=== PATIENT | female | born 1985 | race Caucasian/White ===

== ENCOUNTER 2020-07-06 08:51 | Outpatient (REF) | payer OTHER, SELFPAY ==
--- NOTE | 2020-07-06 | US_ITS ---
EXAMINATION: US OBSTETRICAL CLINICAL INFORMATION: 35-year-old at 12.3 weeks of gestation Suspected anomaly History of IUFD at term COMPARISON: 05/25/2020 TECHNIQUE: Real-time transabdominal ultrasound was performed using C1-5 megahertz transducer. FINDINGS: A single, active, fetus is seen in breech presentation. The placenta is anterior without previa, and the amniotic fluid volume is wnl. MEASUREMENTS: 1. Biparietal Diameter: 4.2 cm; 18.6 wks 2. Occipital Frontal Diameter: 5.9 cm 3. Head Circumference: 16.3 cm; 19.1 wks 4. Abdominal Circumference: 12.7 cm; 18.2 wks 5. Femur Length: 2.94 cm; 19.1 wks 6. Humerus Length: 3.02 cm; 20.0 wks 7. Tibia Length: 2.47 cm; 18.6 wks 8. Ulna Length: 2.54 cm; 19.2 wks 9. Lateral ventricle: 0.68 cm 10. Cerebellum: 1.9 cm; 19.4 wks 11. Cisterna Magna: 0.42 cm 12. Nuchal Fold: 4.13 mm 13. Heart Rate: 155 beats per minute Rt ovary: normal Lt ovary: normal Cervical length 4.0 cm on T/A. GESTATIONAL AGE: 1. Established GA: 18.3 wks 2. [facility]: 18.6 wks ESTIMATED DATE OF DELIVERY: 1. Established BOWEN: 12/04/2020 2. BOWEN [facility]: 12/01/2020 ANATOMY: The visualized anatomy includes but not limited to: 1. Cranium: Normal 2. Intracranial anatomy: cavum septum pellucidi, lateral ventricles, choroid plexus, cerebellum, posterior fossa, third and fourth ventricles. 3. face: orbits, lip/palate, profile, nasal bone 4. Heart: four-chamber view of the heart, ventricular septum, foramen ovale, pulmonary vein, left and right outflow tracts, three-vessel view, 3 vessel trachea view, aortic and ductal arches, situs.. 5. Diaphragm: Normal 6. Abdominal wall: Normal 7. Cord Insertion: Normal 8. Spine: Cervical, thoracic, lumbar, sacral. 9. Stomach: Normal size and shape 10. Right Kidney: Normal 11. Left Kidney: Normal 12. 3 vessel cord: Normal 13. Upper extremity: Open hands, fifth digit. 14. Lower extremity: Tibia, fibula, bilateral feet. 15. Bladder: Normal 16. Genitalia: Male, patient aware IMPRESSION: 1. Single, living, intrauterine with appropriate biometry. 2. Normal survey DISCUSSION: I reviewed today's ultrasound findings. We discussed the limitations of ultrasound in diagnosing aneuploidy and other congenital abnormalities. I reviewed the differences between screening test and diagnostic test. Amniocentesis was discussed and declined. She was informed that the baseline incidence of congenital abnormalities is approximately 3-5%. Not all these conditions are diagnosable in utero. 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 The recurrence risk is minimally increased above the baseline incidence. I informed the patient that the start weekly NST and biophysical profile starting at 34 weeks of gestation. Given her history, an elective delivery at approximately 38 weeks of gestation should be considered. However the final decision will depend on the clinical circumstances as we approach term. RECOMMENDATIONS: 1. Follow-up at approximately 24 weeks for growth (scheduled) 2. Beginning weekly NST and BPP starting at 34 weeks of gestation 3. Consider elective delivery at approximately 38 weeks of gestation. Thank you for allowing me to participate in her care. Visiting time 25 minutes. Majority of this visit was spent reviewing and discussing her care.
== END 2020-07-06 08:52 | disposition home or self-care (01) ==
LOC: HO.US 08:51
PROVIDERS: Visit Provider Advanced Practice Midwife
DX: Z34.92 Encounter for supervision of normal pregnancy, unspecified, second trimester (principal)
CPT/HCPCS: 76811

== ENCOUNTER → 2020-07-09 08:06 | Outpatient (BNVA) | payer OTHER, SELFPAY | PROVIDERS: PCP Nurse Practitioner Family; Referring Provider Nurse Practitioner Family; Visit Provider Advanced Practice Midwife | DX: Z76.89 Persons encountering health services in other specified circumstances (principal) ==

== ENCOUNTER → 2020-07-23 08:05 | Outpatient (BNVA) | payer OTHER, SELFPAY | PROVIDERS: Visit Provider Advanced Practice Midwife | DX: Z76.89 Persons encountering health services in other specified circumstances (principal) ==

== ENCOUNTER 2020-08-03 08:52 | Outpatient (REF) | payer OTHER, SELFPAY ==
--- NOTE | 2020-08-03 09:01 | US_ITS ---
EXAMINATION: OBSTETRICAL ULTRASOUND, Follow up HISTORY: 35-year-old at 22.3 weeks of gestation History of stillbirth COMPARISON: 07/06/2020 TECHNIQUE: Real time transabdominal imaging with color and M-mode Doppler. PRESENTATION: Breech PLACENTA LOCATION: Anterior without previa AMNIOTIC FLUID: Normal MEASUREMENTS: 1. Biparietal Diameter: 5.6 cm; 23.0 wks 2. Head Circumference: 21.0 cm; 23.1 wks 3. Abdominal Circumference: 17.9 cm; 22.6 wks 4. Femur Length: 4.1 cm; 33.1 wks 5. Heart Rate: 156 beats per minute WEIGHT: Estimated weight is 549 grams (1 lbs 3 oz) -- 70 %. Normal views of lateral cerebral ventricle, profile, nose/lips, 4ch view, LVOT, RVOT, gender. GESTATIONAL AGE: 1. Established GA: 22.3 wks 2. GA from [facility]: 23.1 wks ESTIMATED DATE OF DELIVERY: 1. Established BOWEN: 12/04/2020 2. BOWEN from [facility]: 11/29/2020 US/US OB follow up IMPRESSION: 1. A single fetus with appropriate interval growth. RECOMMENDATIONS: 1. f/u in 3-4 weeks is been scheduled. Thank you very much for this referral.
== END 2020-08-03 08:53 | disposition home or self-care (01) ==
LOC: HO.US 08:52
PROVIDERS: Visit Provider Advanced Practice Midwife
DX: Z34.82 Encounter for supervision of other normal pregnancy, second trimester (principal)
CPT/HCPCS: 76816

== ENCOUNTER → 2020-08-20 08:16 | Outpatient (BNVA) | payer OTHER, SELFPAY | PROVIDERS: Visit Provider Advanced Practice Midwife | DX: Z76.89 Persons encountering health services in other specified circumstances (principal) ==

== ENCOUNTER → 2020-08-23 15:27 | Outpatient (BNVA) | payer OTHER, SELFPAY | PROVIDERS: Visit Provider Advanced Practice Midwife | DX: Z76.89 Persons encountering health services in other specified circumstances (principal) ==

== ENCOUNTER 2020-08-24 08:59 | Outpatient (REF) | payer OTHER, SELFPAY ==
--- NOTE | 2020-08-24 09:02 | US_ITS ---
EXAMINATION: OBSTETRICAL ULTRASOUND, Follow up HISTORY: 35-year-old at the 25.3 weeks of gestation History of IUFD at term Size date discrepancy COMPARISON: 08/03/2020 TECHNIQUE: Real time transabdominal imaging with color and M-mode Doppler. PRESENTATION: Vertex PLACENTA LOCATION: Anterior without previa AMNIOTIC FLUID: Within normal limits MEASUREMENTS: 1. Biparietal Diameter: 6.7 cm; 27.0 wks 2. Head Circumference: 24.9 cm; 27.0 wks 3. Abdominal Circumference: 22.6 cm; 27.0 wks 4. Femur Length: 5.0 cm; 26.6 wks 5. Heart Rate: 139 beats per minute WEIGHT: EFW: 1002 grams (2 lbs 3 oz) -- 94 %. BIOPHYSICAL PROFILE: Motion: 2 Tone: 2 Breathin Amniotic Fluid: 2 Total score: 8/8 GESTATIONAL AGE: 1. Established GA: 25.3 wks 2. GA from [facility]: 27.0 wks ESTIMATED DATE OF DELIVERY: 1. Established BOWEN: 12/04/2020 2. BOWEN from [facility]: 11/23/2020 US/US OB follow up IMPRESSION: 1. A single active fetus is in vertex presentation 2. Size greater than dates, EFW corresponds to 94th percentile 3. Reassuring biophysical profile I reviewed today's ultrasound findings and discussed the limitations of ultrasound and estimating weights. She has a history of gestational diabetes. Decided to skip the glucose challenge is an start monitoring her fingerstick glucose values. Reports that her fasting as well as all of her postprandial values are within target range. She is currently on GDM diet. I reviewed the association between now macrosomia and elevated maternal glucose. However in this case, the fetus is constitutionally meant to be near the 90th percentile. Today's finding does not predict macrosomia at term. Given her history, we should continue interval growth evaluation and start testing weekly from 32 weeks. Follow-up has been scheduled in approximately 4-5 weeks. Thank you very much for this referral. Visiting time 25 minutes. Majority of this visit was spent reviewing and coordinating her care.
== END 2020-08-24 09:00 | disposition home or self-care (01) ==
LOC: HO.US 08:59
PROVIDERS: Visit Provider Advanced Practice Midwife
DX: O99.810 Abnormal glucose complicating pregnancy (principal)
CPT/HCPCS: 76816

== ENCOUNTER → 2020-09-10 08:25 | Outpatient (BNVA) | payer OTHER, SELFPAY | PROVIDERS: Visit Provider Advanced Practice Midwife | DX: Z76.89 Persons encountering health services in other specified circumstances (principal) ==

== ENCOUNTER → 2020-09-26 08:13 | Outpatient (BNVA) | payer OTHER, SELFPAY | PROVIDERS: Visit Provider Advanced Practice Midwife | DX: Z34.82 Encounter for supervision of other normal pregnancy, second trimester (principal) | CPT/HCPCS: 99212 ==

== ENCOUNTER 2020-09-28 08:59 | Outpatient (REF) | payer OTHER, SELFPAY ==
--- NOTE | 2020-09-28 09:03 | US_ITS ---
EXAMINATION: OBSTETRICAL ULTRASOUND, Follow up HISTORY: 35-year-old at the 30.3 weeks of gestation History of stillbirth Size date discrepancy COMPARISON: 08/24/2020 TECHNIQUE: Real time transabdominal imaging with color and M-mode Doppler. PRESENTATION: Vertex PLACENTA LOCATION: Anterior without previa AMNIOTIC FLUID: Normal MEASUREMENTS: 1. Biparietal Diameter: 8.1 cm; 32.4 wks 2. Head Circumference: 29.4 cm; 32.3 wks 3. Abdominal Circumference: 27.95 cm; 32.0 wks 4. Femur Length: 6.2 cm; 32.0 wks 5. Heart Rate: 140 beats per minute WEIGHT: EFW: 1898 grams (4 lbs 3 oz) -- 89 %. BIOPHYSICAL PROFILE: Motion: 2 Tone: 2 Breathin Amniotic Fluid: 2 Total score: 8/8 GESTATIONAL AGE: 1. Established GA: 30.3 wks 2. GA from [facility]: 32.2 wks ESTIMATED DATE OF DELIVERY: 1. Established BOWEN: 12/04/2020 2. BOWEN from [facility]: 11/21/2020 US/US OB follow up IMPRESSION: 1. A single active fetus is in vertex presentation 2. Size equals dates 3. Reassuring biophysical profile I reviewed today's findings and gave her reassurance. So far there is no evidence of ureter placental insufficiency. The EFW corresponds to 89th percentile. She had normal 1 hour glucose challenge. Given her history of IUFD, it would be reasonable to consider an elective induction of labor at approximately 38 weeks of gestation. Weekly NST and BPP she start approximately 34 weeks. Thank you very much for this referral. Visiting time 22 minutes. (2,12,8)
== END 2020-09-28 09:00 | disposition home or self-care (01) ==
LOC: HO.US 08:59
PROVIDERS: Visit Provider Advanced Practice Midwife
DX: O99.810 Abnormal glucose complicating pregnancy (principal); O09.293 Supervision of pregnancy with other poor reproductive or obstetric history, third trimester; Z3A.30 30 weeks gestation of pregnancy
CPT/HCPCS: 76816

== ENCOUNTER → 2020-10-10 07:58 | Outpatient (BNVA) | payer OTHER, SELFPAY | PROVIDERS: Visit Provider Obstetrics & Gynecology | DX: Z3A.32 32 weeks gestation of pregnancy (principal) | CPT/HCPCS: 99212 ==

== ENCOUNTER → 2020-10-16 09:59 | Outpatient (BNVA) | payer OTHER, SELFPAY | PROVIDERS: Visit Provider Advanced Practice Midwife | DX: O09.899 Supervision of other high risk pregnancies, unspecified trimester (principal); O09.299 Supervision of pregnancy with other poor reproductive or obstetric history, unspecified trimester | CPT/HCPCS: 81003; 90471; 90715; 99212 ==

== ENCOUNTER 2020-10-19 08:59 | Outpatient (REF) | payer OTHER, SELFPAY ==
--- NOTE | 2020-10-19 09:03 | US_ITS ---
EXAMINATION: OBSTETRICAL ULTRASOUND, Follow up HISTORY: 35-year-old at 33.3 weeks of gestation History of stillbirth Size date discrepancy COMPARISON: 09/28/2020 TECHNIQUE: Real time transabdominal imaging with color and M-mode Doppler. PRESENTATION: Vertex PLACENTA LOCATION: Anterior without previa AMNIOTIC FLUID: AICHA 19.7 MEASUREMENTS: 1. Biparietal Diameter: 8.8 cm; 35.5 wks 2. Head Circumference: 31 cm; 34.5 wks 3. Abdominal Circumference: 31.2 cm; 35.2 wks 4. Femur Length: 6.5 cm; 33.4 wks 5. Heart Rate: 138 beats per minute WEIGHT: EFW: 2491 grams (5 lbs 8 oz) -- 80 %. BIOPHYSICAL PROFILE: Motion: 2 Tone: 2 Breathin Amniotic Fluid: 2 Total score: 8/8 GESTATIONAL AGE: 1. Established GA: 33.3 wks 2. GA from [facility]: 34.6 wks ESTIMATED DATE OF DELIVERY: 1. Established BOWEN: 12/04/2020 2. BOWEN from [facility]: 11/24/2020 US/US OB biophysical profile IMPRESSION: 1. A single active fetus is in vertex presentation 2. Size equals dates 3. Reassuring biophysical profile with normal amniotic fluid volume. Given her history, I agree with the continued weekly testing and delivery at 38 weeks of gestation. Thank you very much for this referral.
== END 2020-10-19 09:00 | disposition home or self-care (01) ==
LOC: HO.US 08:59
PROVIDERS: Visit Provider Advanced Practice Midwife
DX: O09.293 Supervision of pregnancy with other poor reproductive or obstetric history, third trimester (principal); Z3A.33 33 weeks gestation of pregnancy
CPT/HCPCS: 76819

== ENCOUNTER → 2020-10-23 14:57 | Outpatient (BNVA) | payer OTHER, SELFPAY | PROVIDERS: Visit Provider Obstetrics & Gynecology | DX: Z34.82 Encounter for supervision of other normal pregnancy, second trimester (principal) | CPT/HCPCS: 59025; 81003; 99212 ==

== ENCOUNTER 2020-10-25 15:02 | Outpatient (REF) | payer OTHER, SELFPAY ==
[2020-10-25 15:26] LABS: COVID-19 Test Negative (Negative); IDNOW Serial# 55D5AD1C
== END 2020-10-25 15:03 | disposition home or self-care (01) ==
LOC: HO.EMPCOV 15:02
PROVIDERS: Visit Provider Internal Medicine
DX: Z20.822 Contact with and (suspected) exposure to COVID-19 (principal)
CPT/HCPCS: 36415; 87635; C9803

== ENCOUNTER 2020-10-26 08:58 | Outpatient (REF) | payer OTHER, SELFPAY ==
--- NOTE | ~2020-10-26 | US_ITS ---
EXAMINATION: US OBSTETRICAL (BIOPHYSICAL PROFILE) CLINICAL INFORMATION: 35-year-old at the 34.3 weeks of gestation History of stillbirth testing COMPARISON: 10/19/2020 TECHNIQUE: Biophysical profile is performed over 30 minutes with assessment of breathing, gross body movement, tone, and qualitative amniotic fluid volume. FINDINGS: POSITION: Cephalic PLACENTA: Anterior without previa AMNIOTIC FLUID INDEX: 20.0 cm CARDIAC ACTIVITY: 138 beats per minute BIOPHYSICAL PROFILE: Motion: 2 Tone: 2 Breathin Amniotic Fluid: 2 The total biophysical score is 8/8 US/US OB biophysical profile IMPRESSION: 1. Single intrauterine gestation in vertex position. 2. Reassuring BPP and AICHA Thank you for allowing me to participate in her care.
== END 2020-10-26 08:59 | disposition home or self-care (01) ==
LOC: HO.US 08:58
PROVIDERS: Visit Provider Obstetrics & Gynecology
DX: Z36.9 Encounter for antenatal screening, unspecified (principal); Z3A.34 34 weeks gestation of pregnancy; Z87.59 Personal history of other complications of pregnancy, childbirth and the puerperium
CPT/HCPCS: 76819

== ENCOUNTER → 2020-10-30 15:03 | Outpatient (BNVA) | payer OTHER, SELFPAY | PROVIDERS: Visit Provider Advanced Practice Midwife | DX: Z34.80 Encounter for supervision of other normal pregnancy, unspecified trimester (principal) | CPT/HCPCS: 59025; 81003; 99212 ==

== ENCOUNTER 2020-11-02 08:56 | Outpatient (REF) | payer OTHER, SELFPAY ==
--- NOTE | ~2020-11-02 | US_ITS ---
EXAMINATION: US OBSTETRICAL (BIOPHYSICAL PROFILE) CLINICAL INFORMATION: 35-year-old at 35.3 weeks of gestation History of stillbirth at term COMPARISON: 10/26/2020 TECHNIQUE: Biophysical profile is performed over 30 minutes with assessment of breathing, gross body movement, tone, and qualitative amniotic fluid volume. FINDINGS: POSITION: Cephalic PLACENTA: Anterior without previa AMNIOTIC FLUID INDEX: 14.2 cm CARDIAC ACTIVITY: 143 beats per minute BIOPHYSICAL PROFILE: Motion: 2 Tone: 2 Breathin Amniotic Fluid: 2 The total biophysical score is 8/8 US/US OB biophysical profile IMPRESSION: 1. Single intrauterine gestation in vertex position. 2. Reassuring BPP and AICHA Thank you for allowing me to participate in her care. Continue weekly follow-up.
== END 2020-11-02 08:57 | disposition home or self-care (01) ==
LOC: HO.US 08:56
PROVIDERS: Visit Provider Obstetrics & Gynecology
DX: O09.292 Supervision of pregnancy with other poor reproductive or obstetric history, second trimester (principal); Z3A.00 Weeks of gestation of pregnancy not specified
CPT/HCPCS: 76819

== ENCOUNTER 2020-11-06 09:03 | Outpatient (REF) | payer OTHER, SELFPAY ==
[2020-11-07 17:36] LABS: C. trachomatis RNA TMA NOT DETECTED (NOT DETECTED); N. gonorrhoeae RNA TMA NOT DETECTED (NOT DETECTED)
== END 2020-11-06 09:04 | disposition home or self-care (01) ==
LOC: HO.LAB 09:03
PROVIDERS: Visit Provider Advanced Practice Midwife
DX: O09.293 Supervision of pregnancy with other poor reproductive or obstetric history, third trimester (principal); O98.513 Other viral diseases complicating pregnancy, third trimester; B00.9 Herpesviral infection, unspecified; O99.343 Other mental disorders complicating pregnancy, third trimester; F43.10 Post-traumatic stress disorder, unspecified; Z3A.36 36 weeks gestation of pregnancy
CPT/HCPCS: 36415; 59025; 81003; 87081; 87491; 87591; 99212

== ENCOUNTER 2020-11-06 10:19 | Outpatient (REF) | payer OTHER, SELFPAY ==
--- NOTE | ~2020-11-06 | US_ITS ---
EXAMINATION: US OBSTETRICAL (BIOPHYSICAL PROFILE) CLINICAL INFORMATION: O09.899 - Supervision of other high risk pregnancies, unspecified. Nonreactive NST. Prior history stillbirth. COMPARISON: Ultrasound biophysical profile 11/02/2020, 10/26/2020, 10/19/2020 TECHNIQUE: Ultrasound of the pelvis is performed. Biophysical profile is performed over 30 minutes with assessment of breathing, gross body movement, tone, and qualitative amniotic fluid volume. Each matrix is scored 0 or 2, depending if the metric is present. Maximum total score possible is 8. Examination is not intended to assess for anomalies. FINDINGS: POSITION: Cephalic PLACENTA: Anterior AMNIOTIC FLUID INDEX: 19.7 cm CARDIAC ACTIVITY: 128 beats per minute BIOPHYSICAL PROFILE: Motion: 2 Tone: 2 Breathin Amniotic Fluid: 2 Total score: 8 US/US OB biophysical profile IMPRESSION: 1. Single intrauterine gestation in cephalic position with anterior placenta. 2. Total biophysical score is 8 (scale 0-8). 3. Amniotic fluid index 19.7 cm. 4. cardiac activity 128 beats per minute.
== END 2020-11-06 10:20 | disposition home or self-care (01) ==
LOC: HO.US 10:19
PROVIDERS: Visit Provider Advanced Practice Midwife
DX: O36.8390 Maternal care for abnormalities of the fetal heart rate or rhythm, unspecified trimester, not applicable or unspecified (principal); O09.299 Supervision of pregnancy with other poor reproductive or obstetric history, unspecified trimester; Z3A.00 Weeks of gestation of pregnancy not specified
CPT/HCPCS: 76819

== ENCOUNTER → 2020-11-08 08:02 | Outpatient (BNVA) | payer OTHER, SELFPAY | PROVIDERS: Visit Provider Advanced Practice Midwife | DX: O09.899 Supervision of other high risk pregnancies, unspecified trimester (principal); O26.899 Other specified pregnancy related conditions, unspecified trimester; R10.9 Unspecified abdominal pain | CPT/HCPCS: 81003; 99212 ==

== ENCOUNTER 2020-11-09 08:58 | Outpatient (REF) | payer OTHER, SELFPAY ==
--- NOTE | ~2020-11-09 | US_ITS ---
EXAMINATION: OBSTETRICAL ULTRASOUND, Follow up HISTORY: 35-year-old at 36.3 weeks of gestation History of stillbirth at term COMPARISON: 11/06/2020 TECHNIQUE: Real time transabdominal imaging with color and M-mode Doppler. PRESENTATION: Vertex PLACENTA LOCATION: Anterior without previa AMNIOTIC FLUID: AICHA 16.6 cm MEASUREMENTS: 1. Biparietal Diameter: 9.2 cm; 37.2 wks 2. Head Circumference: 32.8 cm; 37.3 wks 3. Abdominal Circumference: 33.5 cm; 37.3 wks 4. Femur Length: 7.1 cm; 36.2 wks 5. Heart Rate: 133 beats per minute WEIGHT: EFW: 3113 grams (6 lbs 14 oz) -- 71 %. BIOPHYSICAL PROFILE: Motion: 2 Tone: 2 Breathin Amniotic Fluid: 2 Total score: 8/8 GESTATIONAL AGE: 1. Established GA: 36.3 wks 2. GA from [facility]: 37.1 wks ESTIMATED DATE OF DELIVERY: 1. Established BOWEN: 12/04/2020 2. BOWEN from [facility]: 11/29/2020 US/US OB follow up IMPRESSION: 1. A single active fetus is in vertex presentation 2. Size equals dates 3. Reassuring biophysical profile Given her history, she is to continue weekly testing. Agree with plan for delivery at 38 weeks. Thank you very much for this referral.
== END 2020-11-09 08:59 | disposition home or self-care (01) ==
LOC: HO.US 08:58
PROVIDERS: Visit Provider Obstetrics & Gynecology
DX: O09.293 Supervision of pregnancy with other poor reproductive or obstetric history, third trimester (principal); Z3A.36 36 weeks gestation of pregnancy
CPT/HCPCS: 76816

== ENCOUNTER → 2020-11-13 08:43 | Outpatient (BNVA) | payer OTHER, SELFPAY | PROVIDERS: Visit Provider Advanced Practice Midwife | DX: Z34.93 Encounter for supervision of normal pregnancy, unspecified, third trimester (principal) | CPT/HCPCS: 59025; 81003; 99212 ==

== ENCOUNTER → 2020-11-15 07:57 | Outpatient (BNVA) | payer OTHER, SELFPAY | PROVIDERS: Visit Provider Advanced Practice Midwife | DX: O09.899 Supervision of other high risk pregnancies, unspecified trimester (principal) | CPT/HCPCS: 99212 ==

== ENCOUNTER → 2020-12-27 11:40 | Outpatient (BNVA) | payer OTHER, SELFPAY | PROVIDERS: Visit Provider Advanced Practice Midwife ==

== ENCOUNTER → 2021-06-17 13:28 | Outpatient (BNVA) | payer OTHER, SELFPAY | PROVIDERS: PCP Nurse Practitioner Family; Visit Provider Advanced Practice Midwife ==

== ENCOUNTER → 2021-08-06 15:29 | Outpatient (BNVA) | payer OTHER, SELFPAY | PROVIDERS: PCP Internal Medicine; Visit Provider Advanced Practice Midwife ==

== ENCOUNTER 2021-09-10 09:00 | Outpatient (RCR) | payer OTHER, SELFPAY | END 2021-09-14 08:00 | disposition home or self-care (01) | LOC: HO.PT 09:00 | PROVIDERS: PCP Internal Medicine; Visit Provider Advanced Practice Midwife | DX: M54.50 Low back pain, unspecified (principal) | CPT/HCPCS: 97110; 97112; 97162 ==

== ENCOUNTER → 2021-10-04 09:38 | Outpatient (BNVA) | payer OTHER, SELFPAY | PROVIDERS: PCP Internal Medicine; Referring Provider Internal Medicine; Visit Provider Surgery ==

== ENCOUNTER 2022-01-28 11:41 | Outpatient (REF) | payer OTHER, SELFPAY ==
[2022-01-28 12:16] LABS: COVID-19 Test Negative (Negative); IDNOW Serial# 08D9AD1C
== END 2022-01-28 11:42 | disposition home or self-care (01) ==
LOC: HO.LAB 11:41
PROVIDERS: Visit Provider Internal Medicine
DX: Z20.822 Contact with and (suspected) exposure to COVID-19 (principal)
CPT/HCPCS: 87635; C9803

== ENCOUNTER 2022-01-29 14:57 | Outpatient (REF) | payer OTHER, SELFPAY ==
[2022-01-29 15:53] LABS: HCG Quantitative 210 mIU/mL
== END 2022-01-29 14:58 | disposition home or self-care (01) ==
LOC: HO.LAB 14:57
PROVIDERS: PCP Nurse Practitioner Family; Visit Provider Advanced Practice Midwife
DX: Z39.1 Encounter for care and examination of lactating mother (principal); N92.6 Irregular menstruation, unspecified; Z87.59 Personal history of other complications of pregnancy, childbirth and the puerperium
CPT/HCPCS: 36415; 84702

== ENCOUNTER 2022-01-31 13:48 | Outpatient (REF) | payer OTHER, SELFPAY ==
[2022-01-31 14:47] LABS: HCG Quantitative 564 mIU/mL
== END 2022-01-31 13:49 | disposition home or self-care (01) ==
LOC: HO.LAB 13:48
PROVIDERS: PCP Nurse Practitioner Family; Visit Provider Advanced Practice Midwife
DX: Z87.59 Personal history of other complications of pregnancy, childbirth and the puerperium (principal)
CPT/HCPCS: 36415; 84702

== ENCOUNTER 2022-02-10 14:17 | Outpatient (REF) | payer OTHER, SELFPAY ==
[2022-02-10 15:52] LABS: HCG Quantitative 27207 mIU/mL
== END 2022-02-10 14:18 | disposition home or self-care (01) ==
LOC: HO.LAB 14:17
PROVIDERS: PCP Nurse Practitioner Family; Visit Provider Advanced Practice Midwife
DX: O09.299 Supervision of pregnancy with other poor reproductive or obstetric history, unspecified trimester (principal)
CPT/HCPCS: 36415; 84702

== ENCOUNTER 2022-02-24 09:53 | Outpatient (REF) | payer OTHER, SELFPAY ==
--- NOTE | ~2022-02-24 | US_ITS ---
EXAMINATION: US OBSTETRICAL ULTRASOUND CLINICAL INFORMATION: History of loss COMPARISON: None. LMP: 12/25/2021. Gestational age by maternal dates is by dates 8 weeks 5 days. Estimated date of delivery by maternal dates is 08/01/2023. TECHNIQUE: Transabdominal first trimester OB ultrasound FINDINGS: This HR: 160 beats per minute. CRL (crown rump length): 1.4 cm (7 weeks 5 days +/- 4 days). BOWEN (estimated date of delivery): 10/08/2022 +/- 4 days. This is behind date from LMP. MATERNAL ADNEXA: The right maternal ovary measures 3.2 x 1.5 x 2.6 cm. The left maternal ovary measures 1.5 x 1.3 x 2 cm. There is no significant maternal adnexal mass. No maternal pelvic ascites. US/US OB <= 14 weeks fetus IMPRESSION: 1. Single intrauterine gestation with ultrasound gestational age of 7 weeks 5 days +/- 4 days. 2. Estimated date of delivery is 10/08/2022 +/- 4 days. 3. No maternal adnexal mass or pelvic ascites.
== END 2022-02-24 09:54 | disposition home or self-care (01) ==
LOC: HO.US 09:53
PROVIDERS: Visit Provider Advanced Practice Midwife
DX: O09.291 Supervision of pregnancy with other poor reproductive or obstetric history, first trimester (principal); Z3A.08 8 weeks gestation of pregnancy; Z87.59 Personal history of other complications of pregnancy, childbirth and the puerperium
CPT/HCPCS: 76801

== ENCOUNTER 2022-03-14 11:13 | Outpatient (REF) | payer OTHER, SELFPAY ==
[2022-03-14 11:50] LABS: Hematocrit 39.4 % (37.0-47.0); Hemoglobin 13.9 g/dl (12.0-16.0); Mean Corpuscular HGB Conc 35.3 g/dl (31.0-35.0); Mean Corpuscular Hemoglobin 27.8 pg (27.0-33.0); Mean Corpuscular Volume 78.8 fL (80.0-98.0); Platelet Count 294 X10*3/uL (160-400); Red Cell Distribution Width 13.3 % (11.0-16.0); White Blood Count 7.3 X10*3/uL (4.8-10.8)
[2022-03-14 12:36] LABS: HBsAGNum1 0.23 S/CO (0.00-0.99); HIV AB/AG Nonreactive (Nonreactive); HIV Num 1 0.05 S/CO (0.00-0.99); Hepatitis B Surface Antigen Negative (Negative); ~HepC Num1 0.07 S/CO (0.00-0.79); ~Hepatitis C Antibody Nonreactive (Nonreactive)
[2022-03-14 12:49] LABS: Syphilis Screen Nonreactive (Nonreactive)
[2022-03-14 14:47] LABS: Amphetamine Screen Urine Not Detected (Not Detect); Barbiturates, Urine Not Detected (Not Detect); Benzodiazepines Screen Urine Not Detected (Not Detect); Cannabinoid Screen Urine Not Detected (Not Detect); Cocaine Screen Urine Not Detected (Not Detect); Fentanyl, urine Not Detected (Not Detect); Opiate Screen Urine Not Detected (Not Detect); Phencyclidine Screen Urine Not Detected (Not Detect)
== END 2022-03-14 11:14 | disposition home or self-care (01) ==
LOC: HO.LAB 11:13
PROVIDERS: PCP Nurse Practitioner Family; Visit Provider Advanced Practice Midwife
DX: Z34.90 Encounter for supervision of normal pregnancy, unspecified, unspecified trimester (principal)
CPT/HCPCS: 80307; 85027; 86762; 86780; 86787; 86803; 86850; 86900; 87086; 87340; 87389; 99212

== ENCOUNTER 2022-03-28 08:50 | Outpatient (REF) | payer OTHER, SELFPAY ==
--- NOTE | ~2022-03-28 | US_ITS ---
EXAMINATION: OBSTETRICAL ULTRASOUND, FIRST TRIMESTER HISTORY: 36-year-old at the 12.2 weeks of gestation NT screening High BMI COMPARISON: 02/24/2022 TECHNIQUE: Real time transabdominal imaging with color and M-mode Doppler. FINDINGS: A single, live IUP CRL of 67.7 mm c/w 13.1wks is noted. Heart Rate: 149 beats per minute. Normal yolk sac seen. NT was 1.3.mm. NB Present The embryo appears sonographically wnl for this GA. Both maternal ovaries are seen and appear normal. GESTATIONAL AGE: 1. Established GA: 12.2 wks 2. GA from [facility]: 13.1 wks ESTIMATED DATE OF DELIVERY: 1. Established BOWEN: 10/08/2022 2. BOWEN from [facility]: 10/02/2022 US/US OB 1T nuc measure IMPRESSION: 1. A single live IUP 2. Size equals dates 3. NT of 1.3 mm MFM Consultation: I reviewed the ultrasound findings along with significance of NT measurement. The NT of less than 3mm is generally reassuring. However, the sensitivity for T21 detection is only 60%. I reviewed the availability of serum aneuploidy screening which includes cell-free DNA and placental protein based tests. I discussed the sensitivity, false-positive rate, and other limitations associated with each test. I also reviewed the availability of invasive diagnostic tests that are associated small but definite risk of miscarriage. We also reviewed the differences between screening tests and diagnostic tests. After our discussion, she opted for the First trimester screening that is based on cell-free DNA or non-invasive testing (NIPT). The result will be faxed to your office in approximately 7 days. A follow up at 18 weeks for survey has been scheduled. Thank you very much for this referral. Total time 20 minutes. The time spent was devoted to counseling the patient about the disease and diagnosis, coordinating care including reviewing her records, pertinent lab data and studies, as well as discussing diagnostic evaluation and workup, plan therapeutic interventions and future disposition of care. This includes any additional research needed to obtain further information in formulating the plan of care of this patient. This note was generated with a voice recognition program. Please excuse any errors which may have been overlooked during my review of this note. Sometimes these errors may affect the content or meaning of a given sentence.
== END 2022-03-28 08:51 | disposition home or self-care (01) ==
LOC: HO.US 08:50
PROVIDERS: Visit Provider Obstetrics & Gynecology
DX: Z34.91 Encounter for supervision of normal pregnancy, unspecified, first trimester (principal); Z3A.12 12 weeks gestation of pregnancy; Z87.59 Personal history of other complications of pregnancy, childbirth and the puerperium
CPT/HCPCS: 76813

== ENCOUNTER 2022-04-07 09:10 | Outpatient (REF) | payer OTHER, SELFPAY ==
[2022-04-07 15:00] LABS: CT PCR NOT DETECTED (Not Detect.); NG PCR NOT DETECTED (Not Detect.)
[2022-04-08 09:42] LABS: BV Int Neg Control Negative (Negative); BV Int Pos Control Positive (Positive)
== END 2022-04-07 09:11 | disposition home or self-care (01) ==
LOC: HO.LAB 09:10
PROVIDERS: PCP Nurse Practitioner Family; Visit Provider Advanced Practice Midwife
DX: Z34.91 Encounter for supervision of normal pregnancy, unspecified, first trimester (principal); Z3A.13 13 weeks gestation of pregnancy
CPT/HCPCS: 81003; 87480; 87491; 87510; 87591; 87660; 99212